=== PATIENT | female | born 1985 | race Caucasian/White ===

== ENCOUNTER → 2019-07-29 | Outpatient (CLI) | payer OTHER ==
--- NOTE | 2019-07-29 10:31 | Diagnostic Imaging Report ---
PROCEDURE: US Non-ob pelvis comp/trans. TECHNIQUE: Multiple realtime grayscale images were obtained of the pelvis in various projections endovaginally. Transabdominal imaging was also performed. INDICATION: Pelvic pain. Evaluate IUD positioning. FINDINGS: The uterus is normal in size measuring 7.5 x 4.0 x 3.7 cm. There is no abnormal endometrial thickening or fluid within the endometrial canal. Positioning of the patient's intrauterine device appears appropriate. Both ovaries are normal in size. There is a small right ovarian follicle. Ovaries demonstrate Doppler flow but there is no adnexal mass. There is no pelvic free fluid. IMPRESSION: 1. Unremarkable sonographic appearance of the uterus, endometrium and both ovaries. There is no pelvic free fluid. Ovaries demonstrate normal Doppler flow. 2. Appropriate positioning of the patient's intrauterine device. Dictated by: Dictated on workstation # [id number]
== END ==
LOC: RAD 09:41
PROVIDERS: ATTEND Nurse Practitioner
DX: Z30.431 Encounter for routine checking of intrauterine contraceptive device (principal); R10.2 Pelvic and perineal pain
CPT/HCPCS: 76830; 76856

== ENCOUNTER → 2020-05-21 | Outpatient (CLI) | payer OTHER ==
--- NOTE | 2020-05-21 13:15 | Diagnostic Imaging Report ---
INDICATION: Fall with hand pain. COMPARISON: None. FINDINGS: Three views of the right hand were obtained. There is very subtle nondisplaced fracture involving the proximal palmar margins of the second middle phalanx. There does appear to be intra-articular extension. Joint spaces are otherwise maintained. No other acute osseous abnormalities are identified. IMPRESSION: 1. Subtle acute nondisplaced fracture involving the second middle phalanx as above. Dictated by: Dictated on workstation # [id number]
--- NOTE | 2020-05-21 13:23 | Diagnostic Imaging Report ---
INDICATION: Pain status post injury. COMPARISON: None. FINDINGS: Multiple radiographic views of the 2nd and 3rd digits of the right hand were obtained. There is an acute nondisplaced fracture involving the proximal plantar margins of the 2nd middle phalanx. There does appear to be intra-articular extension. No other acute osseous abnormalities are seen. The joint spaces are otherwise maintained. IMPRESSION: Acute nondisplaced fracture of the 2nd middle phalanx as above. Dictated by: Dictated on workstation # [id number]
== END ==
LOC: RAD 12:36
PROVIDERS: ATTEND Nurse Practitioner Family
DX: S62.602A Fracture of unspecified phalanx of right middle finger, initial encounter for closed fracture (principal); W19.XXXA Unspecified fall, initial encounter
CPT/HCPCS: 73130; 73140